=== PATIENT | male | born 1995 | race Caucasian/White ===

== ENCOUNTER 2021-06-02 09:32 | Emergency (ER) | payer MEDICAID ==
--- NOTE | 2021-06-02 10:07 | NUR ---
NIL X1.
--- NOTE | 2021-06-02 10:18 | NUR ---
NIL X2.
--- NOTE | 2021-06-02 10:40 | NUR ---
NIL X3.
--- NOTE | 2021-06-02 10:41 | NUR ---
PATIENT NOT IN LOBBY X3, LEFT WITHOUT BEING SEEN.
== END 2021-06-02 10:42 | disposition left against medical advice (07) ==
LOC: ED 10:35
DX: R51.9 Headache, unspecified (principal); R94.31 Abnormal electrocardiogram [ECG] [EKG]; Z53.21 Procedure and treatment not carried out due to patient leaving prior to being seen by health care provider
CPT/HCPCS: 93005